=== PATIENT | male | born 1950 | race Caucasian/White ===

== ENCOUNTER 2018-03-29 12:59 | Day surgery (SDC) | payer OTHER, MEDICARE ==
[~2018-03-29] VITALS: Ht 193 cm; Wt 169.3 kg
[~2018-03-29 12:59] MED LIST: ACET500 PO; AMLO10 PO; ASPI325 PO; ATOR40TA PO; CHLO25B PO; CHOLECALCIFEROL PO; DIGO.25 PO; DIGOX125 MCG PO; DOCU100 PO; FURO20 PO; GLIP5ER PO; LISI10 PO; MAGOXI400 PO; METO100ER PO; METO25ER PO; MULVITMIND PO; NITR.3SL SL; Norco 5-325 Ta1 EACH PO; PANT40 PO; PYRI50 PO; SENN187 PO; SPIR25 PO; WARF5 PO; Zestril40 MG PO
== END 2018-03-29 15:03 | disposition home or self-care (01) ==
LOC: ORSCSDS 12:59
PROVIDERS: Internal Medicine Gastroenterology
PROC: 0DBK8ZX Excision of Ascending Colon, Via Natural or Artificial Opening Endoscopic, Diagnostic (ICD-10-PCS; principal; 2018-03-29 14:30)
PROC: 3E0H8GC Introduction of Other Therapeutic Substance into Lower GI, Via Natural or Artificial Opening Endoscopic (ICD-10-PCS; principal; 2018-03-29 14:30)
PROC: 0DBL8ZX Excision of Transverse Colon, Via Natural or Artificial Opening Endoscopic, Diagnostic (ICD-10-PCS; principal; 2018-03-29 14:30)
DX: Z12.11 Encounter for screening for malignant neoplasm of colon (principal); D12.2 Benign neoplasm of ascending colon; K51.40 Inflammatory polyps of colon without complications; Z80.0 Family history of malignant neoplasm of digestive organs; E11.9 Type 2 diabetes mellitus without complications; I10 Essential (primary) hypertension; I48.91 Unspecified atrial fibrillation; F20.9 Schizophrenia, unspecified; I25.5 Ischemic cardiomyopathy; Z79.82 Long term (current) use of aspirin; Z79.84 Long term (current) use of oral hypoglycemic drugs; Z79.899 Other long term (current) drug therapy; E66.9 Obesity, unspecified; Z68.42 Body mass index [BMI] 45.0-49.9, adult
CPT/HCPCS: 82947; 88305; J7120

== ENCOUNTER 2018-04-12 14:46 | Day surgery (SDC) | payer OTHER, MEDICARE ==
[~2018-04-12] VITALS: Ht 193 cm; Wt 170.1 kg
== END 2018-04-12 15:00 | disposition home or self-care (01) ==
LOC: ORSCMMR 14:46 → SURS 14:51 → ORSCMMR 15:00
PROVIDERS: Internal Medicine Gastroenterology
PROC: 0DBL8ZX Excision of Transverse Colon, Via Natural or Artificial Opening Endoscopic, Diagnostic (ICD-10-PCS; principal; 2018-04-12 07:30)
DX: Z12.11 Encounter for screening for malignant neoplasm of colon (principal); K51.40 Inflammatory polyps of colon without complications; Z80.0 Family history of malignant neoplasm of digestive organs; E11.9 Type 2 diabetes mellitus without complications; I10 Essential (primary) hypertension; I48.91 Unspecified atrial fibrillation; F20.9 Schizophrenia, unspecified; I25.5 Ischemic cardiomyopathy; E66.9 Obesity, unspecified; Z68.42 Body mass index [BMI] 45.0-49.9, adult; Z79.82 Long term (current) use of aspirin; Z79.84 Long term (current) use of oral hypoglycemic drugs; Z79.899 Other long term (current) drug therapy
CPT/HCPCS: 82947; 88305; J2250; J7120

== ENCOUNTER 2021-05-30 21:16 | Inpatient (IN) | payer OTHER ==
[~2021-05-30] VITALS: Ht 193 cm; Wt 95.2 kg
[~2021-05-30 21:16] MED LIST changes: +LISI20 PO; -Zestril40 MG PO
[2021-05-30 21:56] LABS: BASOPHILS ABSOLUTE AUTO 0.04 K/mm3 (0.00-0.23); BASOPHILS PERCENT AUTO 1 % (0-2); EOSINOPHILS PERCENT AUTO 2 % (0-6); Hematocrit 39.6 % (37.0-53.0); Hemoglobin 12.7 g/dL (13.5-17.5); IMMATURE GRAN ABSOLUTE AUTO 0.02 K/mm3 (0.00-0.10); IMMATURE GRAN PERCENT AUTO 0 % (0-1); LYMPHOCYTES PERCENT AUTO 15 % (21-46); MONOCYTES ABSOLUTE AUTO 0.64 K/mm3 (0.16-1.47); MONOCYTES PERCENT AUTO 10 % (4-13); Mean Corpuscular HGB 27.5 pg (26.0-34.0); Mean Corpuscular HGB Conc 32.1 g/dL (31.5-36.5); Mean Corpuscular Volume 86 fL (80-100); Mean Platelet Volume 10.2 fL (9.1-12.4); NEUTROPHILS ABSOLUTE AUTO 4.82 K/mm3 (1.96-9.15); NEUTROPHILS PERCENT AUTO 73 % (41-73); Platelet Count 392 K/mm3 (150-400); RDW Coefficient Variation 14.2 % (11.7-14.2); RDW Standard Deviation 44.2 fL (35.1-46.3); Red Blood Cell Count 4.61 M/mm3 (4.30-5.90); White Blood Cell Count 6.62 K/mm3 (4.00-11.30)
[2021-05-30 22:14] LABS: Alanine Aminotransfer (ALT/SGP 35 U/L (12-78); Albumin, Blood 2.2 g/dL (3.4-5.0); Albumin/Globulin Ratio 0.4 (0.8-1.8); Alk Phos 86 U/L (50-136); Anion Gap 9 mmol/L (6-16); Aspartate Aminotrans (AST/SGOT 36 U/L (12-37); Bilirubin, Total 0.6 mg/dL (0.1-1.0); Blood Urea Nitrogen 45 mg/dL (8-24); Bun/Creatinine Ratio 23.6 (12.0-20.0); CO2, Blood 29 mmol/L (21-32); Calcium, Blood 8.8 mg/dL (8.5-10.1); Chloride, Blood 103 mmol/L (98-108); Creatinine, Blood 1.91 mg/dL (0.60-1.20); Glomerular Filtration Rate 35 (60-); Glucose, Blood 119 mg/dL (70-99); Potassium, Blood 2.9 mmol/L (3.5-5.5); Sodium, Blood 141 mmol/L (136-145); Total Protein, Blood 7.2 g/dL (6.4-8.2)
[2021-05-30 22:45] LABS: Free Thyroxine 1.38 ng/dL (0.70-1.60)
[2021-05-30 23:12] LABS: SARS-Cov-2 (COVID-19) PCR, MMC POSITIVE (NEGATIVE)
--- NOTE | 2021-05-31 06:11 | NUR ---
ADMISSION/SHIFT SUMMARY PATIENT ARRIVED TO PCU 8 FROM ER. SLID PATIENT OVER TO PCU BED WITH ER STAFF. PATIENT PLACED ON CARDIAC MONITORING WITH ZOLL AT BEDSIDE DUE TO BRADYCARDIA IN THE 30S. BP STABLE. ATROPINE AT BEDSIDE WELL. FLUIDS RUNNING AT 100 MLS. PATIENT ORIENTED TO ROOM AND CALL LIGHT SYSTEM. DENIES CHEST PAIN OR SHORTNESS OF BREATH. PATIENT WEARING 4L NC WITH OXYGEN SATURATION ABOVE 90%. HOB AT 30 DEGREES. INTERLOCKING MACHINE OPERATOR PLACED POWERGLIDE TO RANDALL. PATIENT IS A POOR HISTORIAN AND IS UNABLE TO PROVIDE INFORMATION REGARDING MEDICATIONS AND HISTORY. DOCUMENTS RECIEVED FROM [facility]. WILL REPORT TO DAY SHIFT RN
[2021-05-31 07:32] LABS: Bun/Creatinine Ratio 25.7 (12.0-20.0); Calcium, Blood 8.6 mg/dL (8.5-10.1); Creatinine, Blood 1.75 mg/dL (0.60-1.20); Potassium, Blood 3.2 mmol/L (3.5-5.5); Troponin I 0.075 ng/mL (0.000-0.040)
[2021-05-31 09:06] LABS: Digoxin (Lanoxin) 1.28 ug/mL (0.80-2.00)
[2021-05-31 13:42] LABS: C-REACTIVE PROTEIN, EXT RANGE 2.66 mg/dL (0.000-0.300); Magnesium, Blood 2.7 mg/dL (1.6-2.4)
--- NOTE | 2021-05-31 14:49 | NUR ---
ECHOCARDIOGRAM COMPLETE
--- NOTE | 2021-05-31 17:32 | NUR ---
SHIFT SUMMARY PT ALERT AND ORIENTED. HR HAS BEEN STACIE 30-50'S. PT ASYMPTOMATIC WITH BRADYCARDIA. BP STABLE. O2 SATS REMAIN ABOVE 90% ON 2L NC. PT DENIES ANY PAIN. PT ABLE TO REPOSITION HIMSELF IN BED. PT USING URINAL TO VOID AT BEDSIDE. PT DID HAVE ONE BM THIS SHIFT. NS INFUSING PER ODERS. WILL CONTINUE TO MONITOR AND REPORT TO ONCOMING RN. CALL LIGHT IN REACH. PT CALLING APPROPRIATELY.
--- NOTE | 2021-06-01 05:46 | NUR ---
SHIFT SUMMARY PATIENT ALERT AND ORIENTED T/O SHIFT. HR HAS BEEN 30s-50s. PATIENT CONTINUES TO BE ASYMPTOMATIC WITH THIS HR. ALL OTHER VITALS STABLE. PATIENT REMAINS ON 2L NC WITH OXYGEN SATURATION ABOVE 95%. DENIES ANY CHEST PAIN OR PRESSURE. ABLE TO REPOSITION SELF IN BED AND MAKE NEEDS KNOWN TO STAFF. PATIENT USING URINAL INDEPDENTLY. ZOLL AND ATROPINE REMAIN AT BEDSIDE. NO OTHER SIGNIFICANT CHANGES. WILL REPORT TO DAY SHIFT RN.
[2021-06-01 07:33] LABS: Hemoglobin 12.7 g/dL (13.5-17.5); Mean Corpuscular HGB 28.4 pg (26.0-34.0); Mean Corpuscular HGB Conc 32.6 g/dL (31.5-36.5); Mean Corpuscular Volume 87 fL (80-100); Mean Platelet Volume 10.2 fL (9.1-12.4); Platelet Count 264 K/mm3 (150-400); RDW Coefficient Variation 14.3 % (11.7-14.2); RDW Standard Deviation 45.2 fL (35.1-46.3); Red Blood Cell Count 4.47 M/mm3 (4.30-5.90); White Blood Cell Count 7.09 K/mm3 (4.00-11.30)
[2021-06-01 08:07] LABS: Alanine Aminotransfer (ALT/SGP 37 U/L (12-78); Albumin, Blood 1.9 g/dL (3.4-5.0); Albumin/Globulin Ratio 0.4 (0.8-1.8); Alk Phos 83 U/L (50-136); Anion Gap 5 mmol/L (6-16); Aspartate Aminotrans (AST/SGOT 37 U/L (12-37); Bilirubin, Total 0.4 mg/dL (0.1-1.0); Blood Urea Nitrogen 34 mg/dL (8-24); Bun/Creatinine Ratio 29.8 (12.0-20.0); CO2, Blood 29 mmol/L (21-32); Calcium, Blood 8.6 mg/dL (8.5-10.1); Chloride, Blood 107 mmol/L (98-108); Creatinine, Blood 1.14 mg/dL (0.60-1.20); Digoxin (Lanoxin) 0.93 ug/mL (0.80-2.00); Globulin, Blood 5.1 g/dL (2.2-4.0); Glomerular Filtration Rate >60 (60-); Glucose, Blood 93 mg/dL (70-99); Potassium, Blood 3.3 mmol/L (3.5-5.5); Sodium, Blood 141 mmol/L (136-145)
[2021-06-01 09:39] LABS: CHOL/HDL RATIO 3.5; Cholesterol 115 mg/dL (50-200); HDL Cholesterol 33 mg/dL (>39); Low Density Lipoprotein Chol 67 mg/dL (0-110); Triglycerides 75 mg/dL (30-160); Very Low Density Lipoprot Chol 15 mg/dL (6-32)
[2021-06-01 16:46] LABS: Anion Gap 6 mmol/L (6-16); Blood Urea Nitrogen 31 mg/dL (8-24); Bun/Creatinine Ratio 26.3 (12.0-20.0); CO2, Blood 30 mmol/L (21-32); Calcium, Blood 8.4 mg/dL (8.5-10.1); Chloride, Blood 105 mmol/L (98-108); Creatinine, Blood 1.18 mg/dL (0.60-1.20); Glomerular Filtration Rate >60 (60-); Glucose, Blood 107 mg/dL (70-99); Potassium, Blood 3.8 mmol/L (3.5-5.5); Sodium, Blood 141 mmol/L (136-145)
--- NOTE | 2021-06-01 18:38 | NUR ---
SHIFT SUMMARY PT ALERT AND ORIENTED. FLAT AFFECT. PT BED REST AT THIS TIME D/T PHYSICIAN ORDER. PLAN FOR HOME CARDIAC MEDS TO WEAR OFF AND POSSIBLY ATTEMPT AMBULATION TOMORROW, PER DR. ESQUIVEL. HR A-FIB RANGE FROM 40'S-60'S PER TELEMETRY. ATROPINE AT BEDSIDE. PT ASYMPTOMATIC AT THIS TIME. OXYGEN SATURATION MAINTAINED ABOVE 92% ON 2 L OF OXYGEN VIA NC. PT ABLE TO TURN SELF IN BED. URINAL AT BEDSIDE. NO CP OR PRESSURE REPORTED. BP STABLE. WILL CONT TO MONITOR UNTIL REPORT GIVEN TO NIGHTSHIFT RN.
[2021-06-02 05:35] LABS: Hematocrit 39.5 % (37.0-53.0); Hemoglobin 12.8 g/dL (13.5-17.5); Mean Corpuscular HGB 27.9 pg (26.0-34.0); Mean Corpuscular HGB Conc 32.4 g/dL (31.5-36.5); Mean Corpuscular Volume 86 fL (80-100); Mean Platelet Volume 10.1 fL (9.1-12.4); Platelet Count 271 K/mm3 (150-400); RDW Coefficient Variation 14.4 % (11.7-14.2); RDW Standard Deviation 44.5 fL (35.1-46.3); Red Blood Cell Count 4.58 M/mm3 (4.30-5.90); White Blood Cell Count 8.09 K/mm3 (4.00-11.30)
--- NOTE | 2021-06-02 06:16 | NUR ---
SHIFT SUMMARY PT RESTED WELL THROUGH THE NIGHT. ALERT AND ORIENTED, ABLE TO MAKE NEEDS KNOWN. COOPERATIVE WITH PLAN OF CARE. SATS >90% ON 2LNC - COVID +. TELE AFIB RATE 50-80'S, RATE SLOWLY CLIMBING UP, WAQAS TIPTON AWARE. VOIDS TO URINAL, NO BM. NO C/O PAIN. ZOLL AND ATROPINE AT BEDSIDE. VSS. CALL LIGHT WITHIN REACH. BED IN LOWEST POSITION, WILL CONTINUE TO MONITOR.
[2021-06-02 06:24] LABS: Alanine Aminotransfer (ALT/SGP 35 U/L (12-78); Albumin, Blood 2.1 g/dL (3.4-5.0); Albumin/Globulin Ratio 0.4 (0.8-1.8); Alk Phos 82 U/L (50-136); Anion Gap 5 mmol/L (6-16); Aspartate Aminotrans (AST/SGOT 36 U/L (12-37); Bilirubin, Total 0.5 mg/dL (0.1-1.0); Blood Urea Nitrogen 28 mg/dL (8-24); Bun/Creatinine Ratio 23.9 (12.0-20.0); CO2, Blood 29 mmol/L (21-32); Calcium, Blood 8.5 mg/dL (8.5-10.1); Chloride, Blood 106 mmol/L (98-108); Creatinine, Blood 1.17 mg/dL (0.60-1.20); Digoxin (Lanoxin) 0.72 ug/mL (0.80-2.00); Globulin, Blood 4.7 g/dL (2.2-4.0); Glomerular Filtration Rate >60 (60-); Glucose, Blood 118 mg/dL (70-99); Potassium, Blood 3.5 mmol/L (3.5-5.5); Sodium, Blood 140 mmol/L (136-145); Total Protein, Blood 6.8 g/dL (6.4-8.2)
--- NOTE | 2021-06-02 13:30 | NUR ---
DISCHARGE SUMMARY: PT HAS BEEN PROVIDED WITH DC INSTRUCTIONS AND PAPERWORK. ALL QUESTIONS HAVE BEEN ANSWERED, PT DENIES FURTHER QUESTIONS. IV HAS BEEN DC'd WNL. PT ESCORTED FROM UNIT VIA W/C TO AWAITING TAXI RIDE.
== END 2021-06-02 14:00 | disposition home or self-care (01) | DRG 308 ==
LOC: ER 21:16 → ERHOLD 05-31 01:01 → PCU 05-31 01:01
PROVIDERS: Emergency Medicine; Internal Medicine; Internal Medicine Cardiovascular Disease; Student in an Organized Health Care Education/Training Program; ADMIT Hospitalist
PROC: 8E0ZXY6 Isolation (ICD-10-PCS; principal; 2021-05-31)
PROC: 3E02340 Introduction of Influenza Vaccine into Muscle, Percutaneous Approach (ICD-10-PCS; 2021-05-31)
DX: R00.1 Bradycardia, unspecified (principal); U07.1 COVID-19; N17.9 Acute kidney failure, unspecified; I13.0 Hypertensive heart and chronic kidney disease with heart failure and stage 1 through stage 4 chronic kidney disease, or unspecified chronic kidney disease; I50.22 Chronic systolic (congestive) heart failure; E87.6 Hypokalemia; Z88.0 Allergy status to penicillin; I48.91 Unspecified atrial fibrillation; Z66 Do not resuscitate; Z98.890 Other specified postprocedural states; Z87.891 Personal history of nicotine dependence; Z79.899 Other long term (current) drug therapy; E11.22 Type 2 diabetes mellitus with diabetic chronic kidney disease; Z20.822 Contact with and (suspected) exposure to COVID-19; E78.5 Hyperlipidemia, unspecified; B19.20 Unspecified viral hepatitis C without hepatic coma; E66.01 Morbid (severe) obesity due to excess calories; D64.9 Anemia, unspecified; F20.9 Schizophrenia, unspecified; Z68.25 Body mass index [BMI] 25.0-25.9, adult; I25.10 Atherosclerotic heart disease of native coronary artery without angina pectoris; N18.9 Chronic kidney disease, unspecified; Z23 Encounter for immunization
CPT/HCPCS: 36415; 71045; 80048; 80053; 80061; 80162; 82728; 82947; 83735; 84439; 84443; 84484; 85025; 85027; 85379; 86140; 93005; 93010; 93306; 96365; 96368; 99285-25; A9270; C1751; J0461; J3475; J3480; J7030; U0004

== ENCOUNTER 2021-10-13 06:44 | Inpatient (IN) | payer OTHER ==
[~2021-10-13] VITALS: Ht 193 cm; Wt 190.9 kg
[~2021-10-13 06:44] MED LIST changes: -AMLO10 PO; +AMLO5 PO; -ASPI325 PO; +ASPI81CH PO; -LISI20 PO; +Zestril40 MG PO
[2021-10-13 07:23] LABS: BASOPHILS ABSOLUTE AUTO 0.02 K/mm3 (0.00-0.23); BASOPHILS PERCENT AUTO 0 % (0-2); EOSINOPHILS ABSOLUTE AUTO 0.07 K/mm3 (0.00-0.68); EOSINOPHILS PERCENT AUTO 1 % (0-6); Hematocrit 28.3 % (37.0-53.0); Hemoglobin 9.2 g/dL (13.5-17.5); IMMATURE GRAN ABSOLUTE AUTO 0.07 K/mm3 (0.00-0.10); IMMATURE GRAN PERCENT AUTO 1 % (0-1); LYMPHOCYTES ABSOLUTE AUTO 1.18 K/mm3 (0.84-5.20); LYMPHOCYTES PERCENT AUTO 8 % (21-46); MONOCYTES ABSOLUTE AUTO 1.58 K/mm3 (0.16-1.47); MONOCYTES PERCENT AUTO 11 % (4-13); Mean Corpuscular HGB 29.1 pg (26.0-34.0); Mean Corpuscular HGB Conc 32.5 g/dL (31.5-36.5); Mean Corpuscular Volume 90 fL (80-100); NEUTROPHILS ABSOLUTE AUTO 11.32 K/mm3 (1.96-9.15); NEUTROPHILS PERCENT AUTO 80 % (41-73); Platelet Count 334 K/mm3 (150-400); RDW Coefficient Variation 14.7 % (11.7-14.2); RDW Standard Deviation 48.3 fL (35.1-46.3); Red Blood Cell Count 3.16 M/mm3 (4.30-5.90); White Blood Cell Count 14.24 K/mm3 (4.00-11.30)
[2021-10-13 07:29] LABS: Source, Urine Clean Catch
[2021-10-13 07:39] LABS: Bilirubin, Urine Neg (Neg); Blood, Urine 1+ (Neg); Glucose Qualitative, Urine Neg (Neg); Ketones, Urine Neg (Neg); Leukocyte Esterase, Urine 2+ (Neg); Nitrite, Urine Neg (Neg); Protein, Urine 4+ (Neg); Urobilinogen, Urine NORM (Normal)
[2021-10-13 07:46] LABS: Digoxin (Lanoxin) 0.21 ug/mL (0.80-2.00)
[2021-10-13 07:49] LABS: Appearance, Urine Hazy (Clear); Bacteria Few /hpf; Color, Urine Yellow (P-Yellow); Squamous Epithelial Cells Rare /hpf (Few)
[2021-10-13 07:55] LABS: Alanine Aminotransfer (ALT/SGP 38 U/L (12-78); Albumin, Blood 2.4 g/dL (3.4-5.0); Albumin/Globulin Ratio 0.5 (0.8-1.8); Alk Phos 79 U/L (50-136); Anion Gap 9 mmol/L (6-16); Aspartate Aminotrans (AST/SGOT 39 U/L (12-37); Bilirubin, Total 0.6 mg/dL (0.1-1.0); Blood Urea Nitrogen 35 mg/dL (8-24); Bun/Creatinine Ratio 10.3 (12.0-20.0); CO2, Blood 27 mmol/L (21-32); Calcium, Blood 8.4 mg/dL (8.5-10.1); Chloride, Blood 105 mmol/L (98-108); Creatinine, Blood 3.39 mg/dL (0.60-1.20); Globulin, Blood 4.9 g/dL (2.2-4.0); Glomerular Filtration Rate 18 (60-); Glucose, Blood 37 mg/dL (70-99); Sodium, Blood 141 mmol/L (136-145); Total Protein, Blood 7.3 g/dL (6.4-8.2)
[2021-10-13] MEDS ORDERED: DOCU100 PO (08:32)
[2021-10-13] MEDS ORDERED: DOXA2 PO (08:32)
[2021-10-13] MEDS ORDERED: CHLO25B PO (08:32)
[2021-10-13] MEDS ORDERED: METO50ER PO (08:33)
[2021-10-13] MEDS ORDERED: PANT40 PO (08:33)
[2021-10-13 09:51] LABS: U Amphetamine Screen Not Detected; U Barbituate Screen Not Detected; U Benzodiazapine Screen Not Detected; U Buprenorphine Screen Not Detected; U Cannabinoids Screen Not Detected; U Cocaine Screen Not Detected; U Methadone Screen Not Detected; U Methamphetamine Screen Not Detected; U Opiates Screen Not Detected; U Oxycodone Screen Not Detected; U Phencyclidine Screen Not Detected; U Propoxyphene Screen Not Detected
--- NOTE | 2021-10-13 11:56 | NUR ---
ADMISSION NOTE PT IS ALERT AND ORIENTED TO PERSON, PLACE TIME BUT DOES NOT RECALL ALL DETAILS OF BEING BROUGHT INTO EMS. BP STABLE, TELE MONITORING REPORT SHOWS AFIB IN 90'S, SPO2 96% VIA ROOM AIR. D5 IN 1/2 NS INFUSING IN LEFT WRIST PER EMAR INSTRUCTIONS AT 200ML/HR, MOST RECENT CBG 71, WILL CONTINUE TO MONITOR Q2. HE REPORTS BURNING SENSATION UPON URINATION BUT NO PAIN. NO NAUSEA/VOMITTING. HE HAS BEEN ORIENTED TO UNIT.
--- NOTE | 2021-10-13 13:16 | NUR ---
CARE NOTE BLOOD GLUCOSE CHECK Q2 AT 1345 WAS 50, DR MADE AWARE AND ORDERS GIVEN FOR 250 BOLUS OF D5 IN NS WELL ORDER OF D10 @ 125 ML/HR GIVEN, ORDER PENDING FOR PHARMACY VERIFICATION, PT REMAINS ALERT AND ORIENTED AND IS NOW EATING SNACK. WILL CONTINUE TO MONITOR.
--- NOTE | 2021-10-13 13:44 | NUR ---
CARE NOTE D10 INFUSING NOW PER EMAR ORDERS AT 125ML/HR. D51/2NS BOLUS OF [address] MENDOZA ORDERS AND IS NOW STOPPED. WILL CONTINUE WITH Q2 CBGS PER ORDER.
--- NOTE | 2021-10-13 16:05 | NUR ---
CARE NOTE Q2 CBG CHECK RESULTED AT VALUE OF 42, DR. MENDOZA MADE AWARE AND ORDERS TO INCREASE D10 FROM 125ML/HR TO 200ML/HR GIVEN AND D10 NOW INFUSING PER ORDERS. WILL CONTINUE TO MONITOR.
--- NOTE | 2021-10-13 17:56 | NUR ---
CBG CHECK AT 1745 DR. ARNOLD MADE AWARE OF CBG OF 64 AT 1755, NO NEW ORDERS, WILL CONTINUE TO MONITOR.
--- NOTE | 2021-10-13 18:07 | NUR ---
SHIFT SUMMARY PT REMAINS ALERT TO SELF, PLACE, TIME AND PERSON. HE HAS CONTINUED TO DENY FEELINGS OF DIZZINESS, NAUSEA, VOMITTING BUT DID REPORT FEELING "CHOKED UP." UPON FURTHER QUESTIONING HE REPORTED THAT HE WAS NOT CHOKING BUT FEELING SHORT OF BREATH, SPO2 WAS 88% SO 4L NC APPLIED TO IMPROVE SATURATIONS. HR HAS BEEN SITTING AT 100-103, TELE MONITORING IN PLACE AND SHOWS AFIB. PT DENIES CHEST PAIN/PRESSURE BUT REPORTS BURNING SENSATION UPON URINATION. SEE PREVIOUS NOTES ABOUT CBG MONITORING. D10 IS NOW INFUSING PER DR. MENDOZA ORDERS AT 200ML/HR UNTIL BG STABILIZE IN LEFT AC IV. PT ALSO HAS POLYURIA THAT HE STATED WAS NOT NEW FOR HIM BUT ALSO ONLY VOIDS 50-100 ML AT A TIME VIA BEDSIDE URINAL. CBG MONITORIING CONTINUES Q2 PER ORDERS. CALL LIGHT IS IN REACH AND PT NOW APPEARS TO BE RESTING. WILL CONTINUE TO MONITOR UNTIL REPORT GIVEN.
[2021-10-14 04:05] LABS: BASOPHILS ABSOLUTE AUTO 0.02 K/mm3 (0.00-0.23); BASOPHILS PERCENT AUTO 0 % (0-2); EOSINOPHILS ABSOLUTE AUTO 0.13 K/mm3 (0.00-0.68); EOSINOPHILS PERCENT AUTO 1 % (0-6); Hematocrit 25.6 % (37.0-53.0); Hemoglobin 8.4 g/dL (13.5-17.5); IMMATURE GRAN ABSOLUTE AUTO 0.07 K/mm3 (0.00-0.10); IMMATURE GRAN PERCENT AUTO 1 % (0-1); LYMPHOCYTES ABSOLUTE AUTO 1.21 K/mm3 (0.84-5.20); LYMPHOCYTES PERCENT AUTO 11 % (21-46); MONOCYTES ABSOLUTE AUTO 1.13 K/mm3 (0.16-1.47); MONOCYTES PERCENT AUTO 10 % (4-13); Mean Corpuscular HGB 29.8 pg (26.0-34.0); Mean Corpuscular HGB Conc 32.8 g/dL (31.5-36.5); Mean Corpuscular Volume 91 fL (80-100); Mean Platelet Volume 9.5 fL (9.1-12.4); NEUTROPHILS ABSOLUTE AUTO 8.68 K/mm3 (1.96-9.15); NEUTROPHILS PERCENT AUTO 77 % (41-73); Platelet Count 272 K/mm3 (150-400); RDW Coefficient Variation 14.6 % (11.7-14.2); Red Blood Cell Count 2.82 M/mm3 (4.30-5.90); White Blood Cell Count 11.24 K/mm3 (4.00-11.30)
[2021-10-14 04:33] LABS: Albumin/Globulin Ratio 0.5 (0.8-1.8); Bilirubin, Total 0.4 mg/dL (0.1-1.0); Bun/Creatinine Ratio 10.8 (12.0-20.0); Calcium, Blood 7.9 mg/dL (8.5-10.1); Creatinine, Blood 3.44 mg/dL (0.60-1.20); Globulin, Blood 4.4 g/dL (2.2-4.0); Potassium, Blood 3.4 mmol/L (3.5-5.5); Total Protein, Blood 6.4 g/dL (6.4-8.2)
--- NOTE | 2021-10-14 05:44 | NUR ---
SHIFT SUMMARY NO ACUTE CHANGES THIS SHIFT. VSS. PT AXO. IN AFIB, CONTROLLED. ON 4LNC, PT VOIDING Q30 MINUTES AT TIMES AND SOILS SELF. FULL BED BATH COMPLETED. D10GTT, INFUSING AT 200MLS/HR UPON SHIFT START. FOR 1ST HALF OF SHIFT, CBGS 70'S. IT WAS FOUND THAT THE EMAR ONLY SHOWED AN ORDER FOR 125MLS/HR ESPITE BEING TOLD IN REPORT THAT IT WAS 200MLS/HR. WITH CBGS BEING IN THE 70'S, DR HARDY CALLED, ORDERED TO KEEP RATE INFUAING AT 200. 2ND HALF OF SHIFT, CBGS TRENDING UP >100. OTHERWISE, PT HAS BEEN RESTING OFF AND ON T/O SHIFT.
--- NOTE | 2021-10-14 18:07 | NUR ---
SHIFT SUMMARY PT A&O X3. VSS. SPO2 > 92% NOW ON RA, TOLERATING WELL. MONITOR SHOWING AFIB, HR 90's-110. PT W/ Q2H CBG MONITORING, NOW TRANSITIONED TO Q6H MONITORING & D10 GTT DC'd PER MD ORDER W/ CBG's STABLE. PT EATING 100% OF MEALS TODAY. LR GTT INITIATED PER MD ORDER. PT SBA FOR OOB TRANSFERS. WILL CONTINUE TO MONITOR & PROVIDE CARE UNTIL REPORT OFF TO CAR TOP BOLTER RN.
--- NOTE | 2021-10-15 05:41 | NUR ---
SHIFT SUMMARY NO ACUTE CHANGES THIS SHIFT. PT A&OX3, PLEASANT, SLOW TO RESPOND. SP02>92% ON RA. TELEMETRY SHOWS AFIB, HR AVG 90'S. NO BM THIS SHIFT. PT USES URINAL CONSTANTLY IN BED. MOST OF THE SHIFT JUST HAD URINAL IN PLACE TO VOID AT WILL. PT VOIDED SMALL AMOUNTS FREQUENTLY. OFFERED CONDOM CATHETER, PT DENIED. PT SLOPPY WITH URINAL, LINEN CHANGE THIS SHIFT. PT ABLE TO STAND AT BEDSIDE DURING LINEN CHANGE. LR INFUSES PER MAR. CALL LIGHT IN REACH.
[2021-10-15 09:39] LABS: BASOPHILS ABSOLUTE AUTO 0.03 K/mm3 (0.00-0.23); BASOPHILS PERCENT AUTO 0 % (0-2); EOSINOPHILS ABSOLUTE AUTO 0.12 K/mm3 (0.00-0.68); EOSINOPHILS PERCENT AUTO 1 % (0-6); Hematocrit 26.9 % (37.0-53.0); Hemoglobin 8.5 g/dL (13.5-17.5); IMMATURE GRAN ABSOLUTE AUTO 0.04 K/mm3 (0.00-0.10); IMMATURE GRAN PERCENT AUTO 0 % (0-1); LYMPHOCYTES ABSOLUTE AUTO 1.01 K/mm3 (0.84-5.20); LYMPHOCYTES PERCENT AUTO 10 % (21-46); MONOCYTES ABSOLUTE AUTO 0.94 K/mm3 (0.16-1.47); MONOCYTES PERCENT AUTO 10 % (4-13); Mean Corpuscular HGB 28.8 pg (26.0-34.0); Mean Corpuscular HGB Conc 31.6 g/dL (31.5-36.5); Mean Corpuscular Volume 91 fL (80-100); Mean Platelet Volume 9.3 fL (9.1-12.4); NEUTROPHILS ABSOLUTE AUTO 7.59 K/mm3 (1.96-9.15); NEUTROPHILS PERCENT AUTO 78 % (41-73); Platelet Count 289 K/mm3 (150-400); RDW Coefficient Variation 14.7 % (11.7-14.2); RDW Standard Deviation 49.8 fL (35.1-46.3); Red Blood Cell Count 2.95 M/mm3 (4.30-5.90); White Blood Cell Count 9.73 K/mm3 (4.00-11.30)
[2021-10-15 09:51] LABS: Bun/Creatinine Ratio 12.7 (12.0-20.0); Calcium, Blood 8.4 mg/dL (8.5-10.1); Creatinine, Blood 3.32 mg/dL (0.60-1.20)
[2021-10-15 12:12] LABS: Source, Urine Foley catheter
--- NOTE | 2021-10-15 12:13 | NUR ---
MEDICAL STATUS PT A&O X4. VSS. SPO2 > 92% ON RA. MONITOR SHOWING AFIB, HR 90's PRIOR TO TELE REMOVAL THIS SHIFT. PT NOW MEDICAL NO TELE STATUS. W/ ORDER FOR DAIGLE CATH INSERTION D/T HYDRONEPHROSIS. PT PREVIOUSLY VOIDING CLOUDY URINE W/ SEDIMENT IN URINAL. DAIGLE CATH DRAINING CLEAR YELLOW URINE W/ INTERMITTENT WHITE SEDIMENT, CLOUDINESS, & INTERMITTENT DRAINAGE OF RED TINGE URINE WELL. POST DAIGLE CATH INSERTION UA SENT TO LAB PER PROTOCOL. WILL CONTINUE TO MONITOR & PROVIDE CARE UNTIL MEDICAL FLOOR RM ASSIGNMENT AVAILABLE.
[2021-10-15 12:15] LABS: Bilirubin, Urine Neg (Neg); Blood, Urine 5+ (Neg); Glucose Qualitative, Urine Neg (Neg); Ketones, Urine Neg (Neg); Leukocyte Esterase, Urine 3+ (Neg); Nitrite, Urine Neg (Neg); Protein, Urine 4+ (Neg); Urobilinogen, Urine NORM (Normal)
[2021-10-15 12:33] LABS: Appearance, Urine Hazy (Clear); Color, Urine Brown (P-Yellow)
[2021-10-15 12:35] LABS: Bacteria Mod /hpf; Mucus Light (0-Heavy); Red Blood Cells, Urine 50-100 /hpf (0-2); Squamous Epithelial Cells Rare /hpf (Few)
--- NOTE | 2021-10-15 15:50 | NUR ---
TRANSFER TO MEDICAL PT MEDICAL NO TELE STATUS. A&O X4, ABLE TO STAND AND TRANSFER TO WHEELCHAIR. DAIGLE CATH EMPTIED OF RED TINGED URINE W/ MODERATE AMOUNT OF SEDIMENT PRIOR TO LEAVING PCU. CALL OUT TO MD MARTINEZ TO NOTIFY OF URINE APPEARANCE. REPORT GIVEN TO ACCEPTING MEDICAL FLOOR RN PRIOR TO PT DEPARTURE. PT TAKEN UP TO RM 338 BY PCT IN WHEEL CHAIR W/ BELONGINGS @ THIS TIME.
--- NOTE | 2021-10-15 16:35 | NUR ---
TRANSFER FROM PCU. ALERT. ORIENTED. IV RT FA WITH LR INFUSING AT 75 ML/HR. IV LOCKED LEFT HAND. DAIGLE DRAINING SEDIMENT AND MATT COLORED URINE WITH HOSPITALIST NOTIFIED BY REHAB RN. LUNGS CLEAR. DRY SKIN. DROWSEY. COOPERATIVE. BED ALARM ON. ON R.A. UNLABORED RESPIRATIONS WCTM
[2021-10-16 05:23] LABS: BASOPHILS ABSOLUTE AUTO 0.03 K/mm3 (0.00-0.23); BASOPHILS PERCENT AUTO 0 % (0-2); EOSINOPHILS ABSOLUTE AUTO 0.23 K/mm3 (0.00-0.68); EOSINOPHILS PERCENT AUTO 3 % (0-6); Hematocrit 26.8 % (37.0-53.0); Hemoglobin 8.5 g/dL (13.5-17.5); IMMATURE GRAN ABSOLUTE AUTO 0.06 K/mm3 (0.00-0.10); IMMATURE GRAN PERCENT AUTO 1 % (0-1); LYMPHOCYTES ABSOLUTE AUTO 1.15 K/mm3 (0.84-5.20); LYMPHOCYTES PERCENT AUTO 12 % (21-46); MONOCYTES ABSOLUTE AUTO 0.94 K/mm3 (0.16-1.47); MONOCYTES PERCENT AUTO 10 % (4-13); Mean Corpuscular HGB 29.2 pg (26.0-34.0); Mean Corpuscular HGB Conc 31.7 g/dL (31.5-36.5); Mean Corpuscular Volume 92 fL (80-100); Mean Platelet Volume 9.5 fL (9.1-12.4); NEUTROPHILS ABSOLUTE AUTO 6.97 K/mm3 (1.96-9.15); NEUTROPHILS PERCENT AUTO 74 % (41-73); Platelet Count 302 K/mm3 (150-400); RDW Coefficient Variation 14.7 % (11.7-14.2); RDW Standard Deviation 49.9 fL (35.1-46.3); Red Blood Cell Count 2.91 M/mm3 (4.30-5.90); White Blood Cell Count 9.38 K/mm3 (4.00-11.30)
[2021-10-16 05:45] LABS: Bun/Creatinine Ratio 12.7 (12.0-20.0); Calcium, Blood 8.4 mg/dL (8.5-10.1); Creatinine, Blood 3.15 mg/dL (0.60-1.20)
--- NOTE | 2021-10-16 16:08 | NUR ---
SHIFT SUMMARY: PATIENT ALERT AND ORIENTED X 3, PLEASANT, SLOW TO RESPOND. CONTINUES ON NS AT 75ML/HR AND IV ANTIBIOTICS. ACCUCHECKS ORDERED AND WNL. DAIGLE CATHETER IN PLACE DRAINING DARK, PICK URINE. PATIENT IS CONTINENT OF BOWELS AND SBA FOR TRANSFERS. DENIES PAIN OR DISCOMFORT. PATIENT HAD A PELVIS CT THIS AFTERNNON. AWAITING FOR RESULTS. NO ACUTE CHANGES TO REPORT AT THIS TIME.
[2021-10-17 05:48] LABS: Bun/Creatinine Ratio 12.8 (12.0-20.0); Calcium, Blood 8.2 mg/dL (8.5-10.1); Creatinine, Blood 3.12 mg/dL (0.60-1.20); Potassium, Blood 3.7 mmol/L (3.5-5.5)
--- NOTE | 2021-10-17 06:00 | NUR ---
Patient is alert and oriented x3, forgetful at situation. Ambulatory with walker. Complains of generalized pain, prn tylenol provided. Had a massive BM, patient cannot contorl bowels. Lambert Catheter output is red, aware. Call light within reach.
[2021-10-17 15:48] LABS: Percent Saturation 15.4 % (20.0-50.0)
--- NOTE | 2021-10-17 18:00 | NUR ---
SHIFT SUMMARY- PT ALLERT AND ORIENTED TO SELF PLACE AND SITUATION. PT IS FORGETFUL AND HAS BEEN SLEEPY T/O THE DAY NAPPING FREQUENTLY. PT HAD A NEPHROLOGY CONSULT TODAY WITH DR GRIFFIN. NUKE MED IMAGING ORDERED FOR PT IN THE AM. UA ORDERED THIS EVENING DAIGLE CURRENTLY CLAMPED SAMPLE WILL BE COLLECTED SHORTLY. PPT DAIGLE IS PUTTING OUT LARGE AMOUNTS FOR YULIA MARC MD AWARE. PLAN WAS TO DC THE PT HOME TO FOLLOW UP WITH UROLOGY OUTPT ONCE HE IS STABLE, PT WILL LIKELY DC WITH THE DAIGLE CATH IN PLACE WITH TO MANAGE.
--- NOTE | 2021-10-18 04:07 | NUR ---
SHIFT SUMMARY PATIENT HAD NO ACUTE CHANGES OBSERVED. AXOX 3 AND TWO ASSIST TO BSC W/FWW. PIV REMAINS INTACT. LR INFUSING AT 150 mL/HR. DAIGLE PATENT AND DRAINING TO GRAVITY LARGE AMOUNTS OF PINK URINE. VSS/AFEBRILE. DENIES PAIN, SOB, AND N/V. TAKES MEDS WHOLE WITH WATER. COOPERATIVE WITH CARE. CALL LIGHT IN REACH. BED IN LOWEST POSITION. WILL CONTINUE TO MONITOR UNTIL DAY SHIFT NURSE ASSUMES CARE.
[2021-10-18 07:09] LABS: HBSAG SCREEN Negative (Negative); HEP B CORE AB, TOT Positive (Negative); HEP C VIRUS AB 1.2 (0.0-0.9)
[2021-10-18 08:09] LABS: COMPLEMENT C3, SERUM 111 mg/dL (82-167); COMPLEMENT C4, SERUM 23 mg/dL (12-38)
[2021-10-18 11:48] LABS: Albumin, Blood 1.9 g/dL (3.4-5.0); Anion Gap 4 mmol/L (6-16); Blood Urea Nitrogen 36 mg/dL (8-24); Bun/Creatinine Ratio 12.9 (12.0-20.0); CO2, Blood 29 mmol/L (21-32); Calcium, Blood 8.3 mg/dL (8.5-10.1); Chloride, Blood 110 mmol/L (98-108); Creatinine, Blood 2.79 mg/dL (0.60-1.20); Glomerular Filtration Rate 22 (60-); Glucose, Blood 142 mg/dL (70-99); Phosphorus, Blood 4.2 mg/dL (2.5-4.9); Potassium, Blood 3.8 mmol/L (3.5-5.5); Sodium, Blood 143 mmol/L (136-145)
--- NOTE | 2021-10-18 18:53 | NUR ---
SHIFT SUMMARY- DURING MORNING ASSESSMENT WE NOTED AN AUDIBLE HEART MURMUR ESPECIALLY NEAR AORTIC VALVE. PT CONTINUES TO PRODUCE HIGH VOLUMES OF URINE AND INTAKE HIGH VOLUME OF LIQUID T/O THE SHIFT. PT FINISHED 1L OF LR IV AND STARTED ANOTHER 1L AT 1203. PT WENT IN FOR NUCLEAR IMAGING WHERE HE RECIEVED LASIX. PT STILL HAS AN ACTIVE UNCOLLECTED ORDER FOR A STOOL SAMPLE, PT HAS PRODUCED NO STOOL THIS SHIFT. PT RECIEVED CATHETER CLEANING AT 1600. NO ACUTE EVENTS T/O SHIFT. PASSED ALL INFORMATION TO RESIDENCY PROGRAM COORDINATOR RN IN REPORT.
--- NOTE | 2021-10-19 04:08 | NUR ---
SHIFT SUMMARY PATIENT HAD NO ACUTE CHANGES OBSERVED. AXOX 3 AND BEDREST. PIV REMAINS INTACT. LR INFUSING AT 150 mL/HR. DAIGLE PATENT AND DRAINING YELLOW URINE WITH PINK/RED START OF SHIFT. VSS/AFEBRILE. DENIES PAIN, SOB, AND N/V. PATIENT DRINKING FLUIDS T/O SHIFT. COOPERATIVE WITH CARE. CALL LIGHT IN REACH. BED IN LOWEST POSITION. WILL CONTINUE TO MONITOR UNTIL DAY SHIFT NURSE ASSUMES CARE.
[2021-10-19 05:54] LABS: Albumin, Blood 1.9 g/dL (3.4-5.0); Anion Gap 4 mmol/L (6-16); Blood Urea Nitrogen 32 mg/dL (8-24); Bun/Creatinine Ratio 12.6 (12.0-20.0); CO2, Blood 29 mmol/L (21-32); Calcium, Blood 8.4 mg/dL (8.5-10.1); Chloride, Blood 110 mmol/L (98-108); Creatinine, Blood 2.54 mg/dL (0.60-1.20); Glomerular Filtration Rate 25 (60-); Glucose, Blood 107 mg/dL (70-99); Phosphorus, Blood 4.6 mg/dL (2.5-4.9); Potassium, Blood 3.7 mmol/L (3.5-5.5); Sodium, Blood 143 mmol/L (136-145)
[2021-10-19 16:43] LABS: Anion Gap 1 mmol/L (6-16); Blood Urea Nitrogen 34 mg/dL (8-24); Bun/Creatinine Ratio 13.3 (12.0-20.0); CO2, Blood 32 mmol/L (21-32); Calcium, Blood 8.3 mg/dL (8.5-10.1); Chloride, Blood 108 mmol/L (98-108); Creatinine, Blood 2.56 mg/dL (0.60-1.20); Glomerular Filtration Rate 25 (60-); Glucose, Blood 124 mg/dL (70-99); Phosphorus, Blood 4.4 mg/dL (2.5-4.9); Potassium, Blood 3.8 mmol/L (3.5-5.5); Sodium, Blood 141 mmol/L (136-145)
--- NOTE | 2021-10-19 18:28 | NUR ---
SHIFT SUMMARY- PT HAS HAD NO ACUTE CHANGES T/O THE SHIFT. 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 PT HAS NOT HAD A BM IN TWO DAYS AND HE STATES THAT IS A NORMAL OCCURANCE FOR HIM. PT CONTINUES TO PUT OUT A LARGE AMOUNT OF URINE THAT SEEMS MUCH MORE YELLOW THAN PINK NOW. PT SAT UP IN A RECLINER TODAY FOR MOST OF THE DAY, WAS JUST ASSISTED BACK TO BED. PT IS VERY UNSTEADY ON HIS FEET, HE IS A 1PA FOR TRANSFERS, BUT FROM THE RECLINER TO THE BED HE SEEMS MUCH MORE UNSTEADY THAN THE OTHER TRANSFERS T/O THE DAY (THIS HAPPENED AT CHANGE OF SHIFT YESTERDAY WELL). PPT IV BECAME INFILTRATED AND WAS LEAKING THIS MORNING, DC'D AND PLACED A NEW ONE IN THE RIGHT FORE ARM.
--- NOTE | 2021-10-20 04:11 | NUR ---
SHIFT SUMMARY PATIENT HAD NO ACUTE CHANGES OBSERVED. AXO X 3 AND ONE ASSIST TO BSC. DAIGLE PATENT AND DRAINING YELLOW/ORANGE URINE. PO FLUIDS ENCOURAGED. VSS/AFEBRILE. DENIES PAIN, SOB, AND N/V. COOPERATIVE WITH CARE. CALL LIGHT IN REACH. BED IN LOWEST POSITION. WILL CONTINUE TO MONITOR UNTIL DAY SHIFT NURSE ASSUMES CARE.
[2021-10-20 08:01] LABS: Bun/Creatinine Ratio 12.2 (12.0-20.0); Calcium, Blood 8.3 mg/dL (8.5-10.1); Creatinine, Blood 2.37 mg/dL (0.60-1.20); Potassium, Blood 4.2 mmol/L (3.5-5.5)
--- NOTE | 2021-10-20 17:27 | NUR ---
SHIFT SUMMARY: PT A/O X 3-4 STANDBY ASSIST. PT PARTICIPATED WITH PT TODAY AND DID WELL AMBULATING HALLS WITH WALKER. PT CONTINUES TO HAVE DAIGLE IN PLACE DRAINING CLEAR YELLOW URINE. PT HAD NO ACUTE CHANGES T/OUT THE DAY.
--- NOTE | 2021-10-21 07:15 | NUR ---
SHIFT SUMMARY AOX3. SLOW TO RESPOND. VSS. DENIES PAIN, N/V OR DYSPNEA. DAIGLE OUTPUT 3800ML URINE CLEAR LIGHT YELLOW. CALL LIGHT IN REACH. BED ALARM IN PLACE.
[2021-10-21 07:53] LABS: Anion Gap 4 mmol/L (6-16); Blood Urea Nitrogen 32 mg/dL (8-24); Bun/Creatinine Ratio 13.4 (12.0-20.0); CO2, Blood 32 mmol/L (21-32); Calcium, Blood 8.4 mg/dL (8.5-10.1); Chloride, Blood 109 mmol/L (98-108); Creatinine, Blood 2.39 mg/dL (0.60-1.20); Glomerular Filtration Rate 27 (60-); Glucose, Blood 111 mg/dL (70-99); Phosphorus, Blood 4.1 mg/dL (2.5-4.9); Potassium, Blood 3.5 mmol/L (3.5-5.5); Sodium, Blood 145 mmol/L (136-145)
[2021-10-21 14:11] LABS: A/G RATIO 0.6 (0.7-1.7); ALPHA-1-GLOBULIN 0.3 g/dL (0.0-0.4); ALPHA-2-GLOBULIN 0.8 g/dL (0.4-1.0); BETA GLOBULIN 0.8 g/dL (0.7-1.3); GAMMA GLOBULIN 1.5 g/dL (0.4-1.8); GLOBULIN, TOTAL 3.4 g/dL (2.2-3.9); M-SPIKE Not Observed g/dL (Not Observed); PROTEIN, TOTAL, SERUM 5.4 g/dL (6.0-8.5)
[2021-10-21 14:45] LABS: Stool Occult Bld Immuno 1 Negative (NEGATIVE)
--- NOTE | 2021-10-21 19:32 | NUR ---
SHIFT SUMMARY: NO ACUTE CHANGES TODAY. PT HAD UNEVENTFUL DAY. SAT IN CHAIR MOST OF THE DAY FOR MEALS. GOOD URINE OUTPUT.
--- NOTE | 2021-10-22 06:32 | NUR ---
SHIFT SUMMARY NO ACUTE CHANGES THIS SHIFT. AOX3. SLOW TO RESPOND. PLEASENT & COOPERATIVE. VSS. DENIES PAIN, N/V OR DYSPNEA. HAD SIGNIFICANT AMOUNT CLEAR YELLOW URINE OUTPUT. POSSIBLE DC BACK TO [facility] TODAY. CALL LIGHT IN REACH & PT ABLE TO MAKE NEEDS KNOWN. WCTM.
--- NOTE | 2021-10-22 18:26 | NUR ---
DISCHARGE SUMMARY: PT EDUCATED ON DISCHARGE INSTRUCTIONS AND CATHETER CARE. PT GIVEN DEMONSTRATION WITH RETURN DEMONSTRATION ON HOW TO EMPTY CATHETER. PT MADE APPT TO FOLLOW UP WITH [facility] ON 10/30/21 AT 10 AM. PT AWARE OF APPT. NOTIFIED [facility] AND TELEPHONE # [phone] REQUESTING THEY CALL PT TO MAKE HIM A URGENT FOLLOW-UP APPOINTMENT WITH PCP FLAVIA SIMON AND ALSO TO DO A URGENT AUTHORIZATION FOR FOLLOW-UP WITH [facility]. PT PROVIDED WITH CATHETER LEG BAG. PT ASSISTED WITH GETTING DRESSED AND [facility] CALLED FOR PT. PT REPORTED HE COULD PAY FOR [facility]. PT ESCORTED TO [facility] VIA WC BY IZABELLA ADAMS. BELONGINGS SENT WITH PT.
== END 2021-10-22 18:16 | disposition home or self-care (01) | DRG 682 ==
LOC: ER 06:44 → PCU 06:45 → ER 09:23 → PCU 09:23 → ER 10-14 16:49 → PCU 10-14 16:49 → MEDS 10-15 15:54 → ENPENDDIS 10-17 11:10 → MEDS 10-22 18:16
PROVIDERS: Internal Medicine; Internal Medicine Nephrology; Nurse Practitioner Acute Care; Student in an Organized Health Care Education/Training Program; ADMIT Family Medicine
DX: N17.9 Acute kidney failure, unspecified (principal); G92.8 Other toxic encephalopathy; R65.11 Systemic inflammatory response syndrome (SIRS) of non-infectious origin with acute organ dysfunction; I13.0 Hypertensive heart and chronic kidney disease with heart failure and stage 1 through stage 4 chronic kidney disease, or unspecified chronic kidney disease; I50.22 Chronic systolic (congestive) heart failure; I48.20 Chronic atrial fibrillation, unspecified; E87.0 Hyperosmolality and hypernatremia; N13.30 Unspecified hydronephrosis; Z79.82 Long term (current) use of aspirin; Z68.28 Body mass index [BMI] 28.0-28.9, adult; E11.649 Type 2 diabetes mellitus with hypoglycemia without coma; Z59.01 Sheltered homelessness; N18.30 Chronic kidney disease, stage 3 unspecified; Z88.0 Allergy status to penicillin; Z88.8 Allergy status to other drugs, medicaments and biological substances; E11.22 Type 2 diabetes mellitus with diabetic chronic kidney disease; E78.5 Hyperlipidemia, unspecified; I25.10 Atherosclerotic heart disease of native coronary artery without angina pectoris; E66.01 Morbid (severe) obesity due to excess calories; F20.9 Schizophrenia, unspecified; Z98.890 Other specified postprocedural states; Z66 Do not resuscitate; Z79.899 Other long term (current) drug therapy; E87.6 Hypokalemia; D64.9 Anemia, unspecified
CPT/HCPCS: 36415; 51702; 71045; 72192; 76770; 76775; 78708; 80048; 80053; 80069; 80162; 81001; 82274; 82550; 82570; 82595; 82728; 82947; 83540; 83550; 83605; 83615; 83735; 83880; 83930; 84100; 84156; 84165; 84300; 84484; 85025; 86160; 86317; 86704; 86708; 86803; 87040; 87086; 87340; 88108; 90686; 93005; 93010; 96365; 96366; 96372; 96375; 97110; 97116; 97162; 97530; 99285-25; A9270; A9562; G0378; J0696; J1644; J1940; J1956; J3480; J7030; J7042; J7050; J7060; J7120